=== PATIENT | female | born 2000 | race Caucasian/White ===

== ENCOUNTER 2022-07-16 16:30 | Emergency (ER) | payer BC ==
[~2022-07-16] VITALS: Ht 162.6 cm; Wt 53.5 kg
[2022-07-16 18:31] LABS: MEAN CORPUSCULAR HEMOGLOBIN 30.6 uug (24.7-32.8); MEAN CORPUSCULAR VOLUME 92.3 fL (75.5-95.3); PLATELET COUNT (AUTO) 232 K/uL (179-408)
[2022-07-16] MEDS ORDERED: DICYCLOMINE HCL LIQ 10 MG/5 ML UDC PO ONE (18:45)
[2022-07-16] MEDS ORDERED: ONDANSETRON ODT 4 MG TAB.RAPDIS SL ONE (18:45)
[2022-07-16] MEDS ORDERED: MAG HYDROX/AL HYDROX/SIMETH 30 ML LIQUID UDC PO ONE (18:45)
[2022-07-16] MEDS ORDERED: LIDOCAINE VISCUS 2% 15 ML UDC MM ONE (18:45)
[2022-07-16 18:47] LABS: CARBON DIOXIDE 27 mmol/L (21-32); CHLORIDE 102 mmol/L (98-107); CREATININE 0.5 mg/dL (0.6-1.3); GLUCOSE 89 mg/dL (74-106); POTASSIUM 3.5 mmol/L (3.5-5.1); UREA NITROGEN, BLOOD 13 mg/dL (7-18)
[2022-07-16] MEDS ORDERED: PANTOPRAZOLE SODIUM 40 MG TABLET.DR PO ONE ×2 (18:49→19:00)
[2022-07-16] MEDS ORDERED: ONDANSETRON ODT 4 MG TAB.RAPDIS ONE (18:49)
[2022-07-16 18:54] LABS: ALANINE AMINOTRANSFERASE 36 U/L (14-59); ALKALINE PHOSPHATASE 81 U/L (50-136); ASPARTATE AMINOTRANSFERASE 27 U/L (15-37); BILIRUBIN,DIRECT 0.1 mg/dL (0.0-0.2); BILIRUBIN,TOTAL 0.3 mg/dL (0.2-1.0); LIPASE 106 U/L (73-393); TOTAL PROTEIN, SERUM 7.8 g/dL (6.4-8.2)
[2022-07-16] MEDS ORDERED: MAG HYDROX/AL HYDROX/SIMETH 30 ML LIQUID UDC ONE (20:04)
[2022-07-16] MEDS ORDERED: DICYCLOMINE HCL LIQ 10 MG/5 ML UDC ONE (20:04)
[2022-07-16] MEDS ORDERED: LIDOCAINE VISCUS 2% 15 ML UDC ONE (20:04)
[2022-07-16] MEDS ORDERED: LANS30CA54 PO (20:08)
[2022-07-16] MEDS ORDERED: ONDA4TAB5 PO (20:08)
[2022-07-16 20:16] VITALS: BP 120/76
--- NOTE | 2022-07-16 20:16 | NUR ---
Patient discharged to home in stable condition. Written and verbal after care instructions given. Patient verbalizes understanding of instructions. Stressed follow up or return to ER for worsening s/s. patient is a/ox4, NAD noted. Patient is able to walk with steady gait
== END 2022-07-16 20:17 | disposition home or self-care (01) ==
LOC: ER 16:31
DX: R12 Heartburn (principal); D72.820 Lymphocytosis (symptomatic)
CPT/HCPCS: 36415; 83690; 85025; A4663; Q0162